=== PATIENT | male | born 1960 | race Caucasian/White ===

== ENCOUNTER → 2016-12-05 | Outpatient (CLI) | payer OTHER ==
[~2016-12-05] MED LIST: HUMALOG100 UNIT/1 SQ; LANTUS100 UNIT/1 SQ; METFORMIN HCL500 MG PO; PROTONIX40 MG PO; ZANTAC150 MG PO
== END ==
LOC: US 11:18
DX: I65.29 Occlusion and stenosis of unspecified carotid artery (principal); I65.23 Occlusion and stenosis of bilateral carotid arteries
CPT/HCPCS: 93880

== ENCOUNTER → 2020-10-14 | Outpatient (CLI) | payer OTHER ==
[~2020-10-14] MED LIST changes: +CETIRIZINE HCL10 MG PO; +ESOMEPRAZOLE MA20 MG PO; +FLAGYL500 MG PO; +FLONASE 0.05% N16 GM; +HUMALOG100 UNIT/1 SC; +HYDROXYZINE HCL50 MG PO; +SUDAFED PO; +TOUJEO MAX300 UNIT/1 SC; +VITAMIN D3 PO; +ZANTAC300 MG PO
== END ==
LOC: RAD 10-02 08:30
DX: R13.10 Dysphagia, unspecified (principal)
CPT/HCPCS: 74230; 92611-GN

== ENCOUNTER → 2020-12-11 | Outpatient (CLI) | payer OTHER | LOC: KOH-I 09:15 | DX: J32.9 Chronic sinusitis, unspecified (principal); J33.8 Other polyp of sinus; J34.89 Other specified disorders of nose and nasal sinuses | CPT/HCPCS: 70486 ==